=== PATIENT | male | born 1980 | race Caucasian/White ===

== ENCOUNTER 2018-12-31 10:26 | Day surgery (SDC) | payer BC ==
[~2018-12-31] VITALS: Ht 167.6 cm; Wt 108.9 kg
[2018-12-31] VITALS (8 sets, daily range): BP systolic 111–131; BP diastolic 59–85
[~2018-12-31 10:26] MED LIST: AZITHROMYCIN250 MG ORAL; BACTRIM-DS1 EA ORAL; Bupivacaine 0.75% 30ml vial INJ ONE; CRESTOR10 M2 ORAL; FARXIGA5 MG PO; GLUCOPHAGE500 MG PO; JANUMET 50-1,01 EACH ORAL; JANUVIA100 MG ORAL; LISINOPRIL2.5 MG ORAL; Lidocaine 1% MPF 10mg/ml 5ml ONE; METFORMIN HCL1000 M1 ORAL; NORCO 5/3251 TAB ORAL; Proparacaine 0.5% Opth Soln 15ml RIGHT EYE ONE; Tetracaine 0.5% Opth 4ml Soln ONE
[2018-12-31] MEDS ORDERED: Kenalog-40 1ml Vial ONE (10:29)
[2018-12-31] MEDS ORDERED: EPINEPHrine 1mg/1ml Amp ONE (10:29)
[2018-12-31] MEDS ORDERED: Dexamethasone 4mg/ml vial ONE (10:30)
[2018-12-31] MEDS ORDERED: BSS 500ml btl ONE (10:30)
[2018-12-31] MEDS ORDERED: Maxitrol Opth Oint 3.5gm ONE (10:30)
[2018-12-31] MEDS ORDERED: Sodium Hyaluronate 10 mg/ml 0.85ml ONE ×2 (10:31→14:27)
[2018-12-31] MEDS ORDERED: BSS 15ml BTL ONE (10:31)
[2018-12-31] MEDS ORDERED: Acetylcholine Injection (OR) ONE (10:31)
[2018-12-31] MEDS ORDERED: Povidone-Iodine 5% opth solution ONE (10:31)
[2018-12-31] MEDS ORDERED: Goniotaire 2.5% Opth Soln - 15ml ONE (10:36)
[2018-12-31] MEDS ORDERED: Lidocaine 2% MPF 5ml Vial INJ ONE (10:45)
[2018-12-31] MEDS: Phenylephrine 2.5% Op 2ml Soln RIGHT EYE SCH ×3 (10:53→11:13)
[2018-12-31] MEDS: Tropicamide 1% Opth 15ml Soln RIGHT EYE SCH ×3 (10:53→11:13)
[2018-12-31] MEDS: Cyclopentolate 1% Opth Sol 2ml RIGHT EYE SCH ×3 (10:53→11:13)
--- NOTE | 2018-12-31 10:55 | NUR ---
IV LR WAS STARTED BY SILVIA WRIGHT RN. NO S/S OF INFILTRATION.
[2018-12-31] MEDS ORDERED: fentaNYL 100 mcg/2 mL IV ONE (11:17)
[2018-12-31] MEDS ORDERED: Midazolam 2mg/2ml Inj ONE (11:18)
[2018-12-31] MEDS ORDERED: Propofol 200mg/20ml IV ONE (11:18)
[2018-12-31] MEDS ORDERED: Sterile Water Irrig 1000ml IRRIG ONE (11:30)
[2018-12-31] MEDS ORDERED: NS Irrig 1000ml ONE (11:30)
[2018-12-31] MEDS ORDERED: LR 1000ml ONE (11:30)
--- NOTE | 2018-12-31 11:46 | Anethesia Preoperative Eval ---
Anesthesia Pre-op PMH/ROS General Date of Evaluation: Dec 31, 2018 Time of Evaluation: 11:44 Anesthesiologist: Davie ASA Score: ASA 3 Mallampati Score Class I : Soft palate, uvula, fauces, pillars visible Class II: Soft palate, uvula, fauces visible Class III: Soft palate, base of uvula visible Class IV: Only hard plate visible Mallampati Classification: Class III Surgeon: Roxie Diagnosis: R eye diabetic retiopathy Surgical Procedure: R eye PPV Anesthesia History: none Social History: smoking - h/o Family History: no anesthesia problems Allergies: Coded Allergies: PENICILLINS (Verified Allergy, Severe, family hx of david, 11/29/12) Medications: see eMAR Patient NPO?: Yes Past Medical History Cardiovascular: Reports: HTN; Denies: CAD, PR, valve dz, arrhythmia, other Pulmonary: Reports: MARIELY; Denies: asthma, COPD, other Gastrointestinal/Genitourinary: Reports: GERD; Denies: CRI, ESRD, other Neurologic/Psychiatric: Reports: depression/anxiety; Denies: dementia, CVA, TIA, other Endocrine: Reports: DM - poorly controlled; Denies: hypothyroidism, steroids, other HEENT: Reports: other - diabetic retinopathy; Denies: cataract (L), cataract (R), glaucoma, DOUGLAS (L), DOUGLAS (R) Hematology/Immune: Denies: anemia, DVT, bleeding disorder, other Musculoskeletal/Integumentary: Denies: OA, RA, DJD, DDD, edema, other Other: obesity PMH Narrative: as above PSxH Narrative: Foot Sx. Anesthesia Pre-op Phys. Exam Physician Exam Last Vital Signs Date Time Temp Pulse Resp B/P (MAP) Pulse Ox O2 Delivery O2 Flow Rate FiO2 12/31/18 11:05 98.1 84 20 111/66 96 Room Air Constitutional: NAD Neurologic: CN 2-12 intact Cardiovascular: RRR, no M/R/G Respiratory: CTA Gastrointestinal: other - obesity Airway Exam Mallampati Score: Class III MO: full Neck: short ROM: full Teeth: intact Dentures: no upper, no lower Anesthesia Pre-op A/P Labs see chart Studies Pre-op Studies: EKG - NSR Risk Assessment & Plan Assessment: ASA 3 Plan: MAC with retrobulbar block Status Change Before Surgery: No Pre-Antibiotics Drug: none Brigido Broderick MD Dec 31, 2018 11:46
--- NOTE | 2018-12-31 12:03 | Operative Note - PDOC ---
Operative Note Operative Note Pre-op Diagnosis: PDR/VH/TRD OD Anesthesia: local Specimen: none Complications: none Condition: stable Estimated Blood Loss: minimal Drains: none Implant(s) used?: Yes - SO OD Volodymyr Jackman M.D., MD Dec 31, 2018 12:03
--- NOTE | 2018-12-31 12:03 | Pre-Procedure Note/Attestation ---
Pre-Procedure Note/Attestation Complete Prior to Procedure Planned Procedure: right Procedure Narrative: PDR/VH/TRD OD Indications for Procedure Pre-Operative Diagnosis: PDR/VH/TRD OD Attestation I attest that I discussed the nature of the procedure; its benefits; risks and complications; and alternatives (and the risks and benefits of such alternatives ), prior to the procedure, with the patient (or the patient's legal termite control service representative). I attest that, if there was a reasonable possibility of needing a blood transfusion, the patient (or the patient's legal termite control service representative) was given the [facility] standardized written summary, pursuant to the Get[place]w Pieter Blood Safety Act ([place] Health and Safety Code # 1645, as amended). I attest that I re-evaluated the patient just prior to the surgery and that there has been no change in the patient's H&P, except as documented below: Volodymyr Jackman M.D., MD Dec 31, 2018 12:03
[2018-12-31] MEDS ORDERED: LR 1000ml 1,000 ML IVLG SCH (12:21)
[2018-12-31] MEDS ORDERED: Meperidine 50mg/ml Inj(FOR RIGORS ONLY) IV PRN (12:30)
--- NOTE | 2018-12-31 13:33 | Immediate Post-Op Evaluation ---
Immediate Post-Op Evalulation Immediate Post-Op Evalulation Procedure: R eye PPV membraine peel laser treatment, oil injection Date of Evaluation: Dec 31, 2018 Time of Evaluation: 13:31 IV Fluids: 300 Blood Products: none Estimated Blood Loss: min Urinary Output: none Blood Pressure Systolic: 118 Blood Pressure Diastolic: 68 Pulse Rate: 82 Respiratory Rate: 20 O2 Sat by Pulse Oximetry: 98 Temperature (Fahrenheit): 97.6 Pain Score (1-10): 1 Nausea: No Vomiting: No Complications none Patient Status: awake, patent, none Hydration Status: adequate Brigido Broderick MD Dec 31, 2018 13:33
--- NOTE | 2018-12-31 14:25 | 48 Hour Post Anesthesia Eval ---
Post Anesthesia Evaluation Procedure: R eye PPV membraine peel laser treatment, oil injection Date of Evaluation: Dec 31, 2018 Time of Evaluation: 14:24 Blood Pressure Systolic: 114 0: 56 Pulse Rate: 78 Respiratory Rate: 20 Temperature (Fahrenheit): 97.6 O2 Sat by Pulse Oximetry: 98 Airway: patent Nausea: No Vomiting: No Pain Intensity: 2 Hydration Status: adequate Cardiopulmonary Status: stable Mental Status/LOC: patient returned to baseline Follow-up Care/Observations: n/a Post-Anesthesia Complications: none Follow-up care needed: ready to discharge Brigido Broderick MD Dec 31, 2018 14:25
== END 2018-12-31 15:00 | disposition home or self-care (01) ==
LOC: SUR 10:26
DX: E11.3531 Type 2 diabetes mellitus with proliferative diabetic retinopathy with traction retinal detachment not involving the macula, right eye (principal); H26.9 Unspecified cataract; Z88.0 Allergy status to penicillin; Z87.891 Personal history of nicotine dependence; I10 Essential (primary) hypertension; K21.9 Gastro-esophageal reflux disease without esophagitis; G47.33 Obstructive sleep apnea (adult) (pediatric); F32.9 Major depressive disorder, single episode, unspecified; F41.9 Anxiety disorder, unspecified; E11.9 Type 2 diabetes mellitus without complications; E66.9 Obesity, unspecified; Z68.38 Body mass index [BMI] 38.0-38.9, adult
CPT/HCPCS: 67042; 82962; J0171; J1100; J2175; J2250; J2704; J3010; J3301; J3370; J3490; 94003; 94150

== ENCOUNTER 2019-01-14 07:06 | Day surgery (SDC) | payer BC ==
[2019-01-14] VITALS (8 sets, daily range): BP systolic 110–127; BP diastolic 67–78
[~2019-01-14] VITALS: Ht 167.6 cm; Wt 104.3 kg
[~2019-01-14 07:06] MED LIST changes: -Bupivacaine 0.75% 30ml vial INJ ONE; -Lidocaine 1% MPF 10mg/ml 5ml ONE; +Proparacaine 0.5% Opth Soln 15ml LEFT EYE SCH; -Proparacaine 0.5% Opth Soln 15ml RIGHT EYE ONE; -Tetracaine 0.5% Opth 4ml Soln ONE
[2019-01-14] MEDS ORDERED: Kenalog-40 1ml Vial ONE (07:07)
[2019-01-14] MEDS ORDERED: Lidocaine 2% MPF 5ml Vial INJ ONE (07:07)
[2019-01-14] MEDS ORDERED: EPINEPHrine 1mg/1ml Amp ONE (07:07)
[2019-01-14] MEDS ORDERED: Maxitrol Opth Oint 3.5gm ONE (07:08)
[2019-01-14] MEDS ORDERED: Pred Forte 1% Opth Susp 1ml ONE (07:08)
[2019-01-14] MEDS ORDERED: Dexamethasone 4mg/ml vial ONE (07:08)
[2019-01-14] MEDS ORDERED: Goniotaire 2.5% Opth Soln - 15ml ONE (07:08)
[2019-01-14] MEDS ORDERED: Tetracaine 0.5% Opth 4ml Soln ONE (07:09)
[2019-01-14] MEDS ORDERED: BSS 15ml BTL ONE (07:09)
[2019-01-14] MEDS ORDERED: BSS 500ml btl ONE (07:09)
[2019-01-14] MEDS ORDERED: Povidone-Iodine 5% opth solution ONE (07:09)
[2019-01-14] MEDS ORDERED: Acetylcholine Injection (OR) ONE (07:09)
[2019-01-14] MEDS ORDERED: Bupivacaine 0.75% 30ml vial INJ ONE (07:10)
[2019-01-14] MEDS ORDERED: Sodium Hyaluronate 10 mg/ml 0.85ml ONE (07:10)
[2019-01-14] MEDS: Tropicamide 1% Opth 15ml Soln LEFT EYE SCH ×3 (07:23→07:34)
[2019-01-14] MEDS: Phenylephrine 2.5% Op 2ml Soln LEFT EYE SCH ×3 (07:23→07:34)
[2019-01-14] MEDS: Cyclopentolate 1% Opth Sol 2ml LEFT EYE SCH ×3 (07:23→07:35)
[2019-01-14 07:39] LABS: BASOPHILS % (AUTO) 0.8 % (0.0-2.0); EOSINOPHILS % (AUTO) 3.8 % (0.0-3.0); HEMATOCRIT 42.4 % (42.0-52.0); HEMOGLOBIN 14.4 G/DL (14.2-18.0); LYMPHOCYTES % (AUTO) 23.7 % (20.0-45.0); MEAN CORPUSCULAR VOLUME 84 FL (80-99); MONOCYTES % (AUTO) 10.9 % (1.0-10.0); NEUTROPHILS % (AUTO) 60.9 % (45.0-75.0); PLATELET COUNT 207 K/UL (150-450); RED BLOOD COUNT 5.05 M/UL (4.70-6.10); RED CELL DISTRIBUTION WIDTH 12.1 % (11.6-14.8); WHITE BLOOD COUNT 8.1 K/UL (4.8-10.8)
--- NOTE | 2019-01-14 07:39 | Anethesia Preoperative Eval ---
Anesthesia Pre-op PMH/ROS General Date of Evaluation: January 14, 2019 Time of Evaluation: 07:35 Anesthesiologist: Davie ASA Score: ASA 3 Mallampati Score Class I : Soft palate, uvula, fauces, pillars visible Class II: Soft palate, uvula, fauces visible Class III: Soft palate, base of uvula visible Class IV: Only hard plate visible Mallampati Classification: Class III Surgeon: Augustina Diagnosis: Diabetic retinopathy Surgical Procedure: Vitrectomy Anesthesia History: none Family History: no anesthesia problems Allergies: Coded Allergies: PENICILLINS (Verified Allergy, Unknown, 01/13/19) Medications: see eMAR Patient NPO?: Yes Past Medical History Cardiovascular: Reports: HTN; Denies: CAD, CO, valve dz, arrhythmia, other Pulmonary: Reports: MARIELY; Denies: asthma, COPD, other Gastrointestinal/Genitourinary: Reports: GERD; Denies: CRI, ESRD, other Neurologic/Psychiatric: Reports: depression/anxiety; Denies: dementia, CVA, TIA, other Endocrine: Reports: DM; Denies: hypothyroidism, steroids, other HEENT: Reports: other - retinopathy Hematology/Immune: Denies: anemia, DVT, bleeding disorder, other Musculoskeletal/Integumentary: Denies: OA, RA, DJD, DDD, edema, other Other: obesity PMH Narrative: as above PSxH Narrative: see H&P Anesthesia Pre-op Phys. Exam Physician Exam Last Vital Signs Date Time Temp Pulse Resp B/P (MAP) Pulse Ox O2 Delivery O2 Flow Rate FiO2 01/14/19 07:28 98.1 91 18 127/67 98 Room Air Constitutional: NAD Neurologic: CN 2-12 intact Cardiovascular: RRR, no M/R/G Respiratory: CTA Gastrointestinal: S/NT/ND Airway Exam Mallampati Score: Class III MO: full Neck: flexible ROM: full Teeth: intact Dentures: no upper, no lower Anesthesia Pre-op A/P Labs Hematology Test 01/14/19 07:20 White Blood Count Pending Red Blood Count Pending Hemoglobin Pending Hematocrit Pending Mean Corpuscular Volume Pending Mean Corpuscular Hemoglobin Pending Mean Corpuscular Hemoglobin Concent Pending Red Cell Distribution Width Pending Platelet Count Pending Mean Platelet Volume Pending Neutrophils (%) (Auto) Pending Lymphocytes (%) (Auto) Pending Monocytes (%) (Auto) Pending Eosinophils (%) (Auto) Pending Basophils (%) (Auto) Pending Coagulation Test 01/14/19 07:20 Prothrombin Time Pending Prothromb Time International Ratio Pending Activated Partial Thromboplast Time Pending Chemistry Test 01/14/19 07:20 Sodium Level Pending Potassium Level Pending Chloride Level Pending Carbon Dioxide Level Pending Blood Urea Nitrogen Pending Creatinine Pending Estimat Glomerular Filtration Rate Pending Glucose Level Pending Calcium Level Pending Risk Assessment & Plan Assessment: ASA 3 Plan: MAC with retrobulbar block Status Change Before Surgery: No Pre-Antibiotics Drug: none Brigido Broderick MD January 14, 2019 07:39
[2019-01-14] MEDS ORDERED: MULTIVITAMINS1 EAC2 ORAL (07:40)
[2019-01-14] MEDS ORDERED: fentaNYL 100 mcg/2 mL IV ONE (07:41)
[2019-01-14] MEDS ORDERED: Propofol 200mg/20ml IV ONE (07:41)
[2019-01-14] MEDS ORDERED: Midazolam 2mg/2ml Inj ONE (07:41)
--- NOTE | 2019-01-14 07:44 | Pre-Procedure Note/Attestation ---
Pre-Procedure Note/Attestation Complete Prior to Procedure Procedure Narrative: Dense VH OS plan for PPV Indications for Procedure Pre-Operative Diagnosis: PDR/VH OS Attestation I attest that I discussed the nature of the procedure; its benefits; risks and complications; and alternatives (and the risks and benefits of such alternatives ), prior to the procedure, with the patient (or the patient's legal inside outside sales representative). I attest that, if there was a reasonable possibility of needing a blood transfusion, the patient (or the patient's legal inside outside sales representative) was given the [facility] standardized written summary, pursuant to the Get[place]w Pieter Blood Safety Act ([place] Health and Safety Code # 1645, as amended). I attest that I re-evaluated the patient just prior to the surgery and that there has been no change in the patient's H&P, except as documented below: Volodymyr Jackman M.D., MD January 14, 2019 07:44
--- NOTE | 2019-01-14 07:45 | Operative Note - PDOC ---
Operative Note Operative Note Chief Complaint: Vision loss OS Pre-op Diagnosis: PDR/VH OS Procedure: PPV/MP/EL/AFE/SO OS Post-op Diagnosis: PDR/NCVH/TRD/Cataract OS Surgeon: Augustina Anesthesia: local Specimen: none Complications: none Condition: stable Estimated Blood Loss: minimal Implant(s) used?: Yes - SO Indications for Procedure Location: [facility] [place] Pre-operative Diagnosis: 1. 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 Cataract, LEFT EYE Post-operative Diagnosis: Same Procedure: Pars plana vitrectomy, tractional retinal detachment repair, membrane peel, endolaser, air-fluid exchange, infusion of silicone oil (1K centistokes) LEFT EYE Surgeon: Volodymyr Jackman M.D. Anesthesia: Retrobulbar Complications: None Indications for the procedure: The patient has vision loss due to proliferative diabetic retinopathy/ tractional retinal detachment and presents today for surgery. After review of the risks, benefits, alternative and the patient signed informed consent into the medical chart. Description of Procedure Procedure performed: The patient was met in the pre-op area where informed consent was reviewed. The operative eye was verified, marked and dilated. The patient was transferred to the operative suite, where cardiopulmonary monitoring was established and peribulbar anesthetic was administered without complications. The eye was prepped and draped in sterile ophthalmic fashion. Under microscope visualization the 23 gauge infusion line was placed inferotemporally. After visualization of the tip in the vitreous cavity, the infusion line was turned on. The superotemporal and superonasal cannulas were placed. Under BIOM visualization, peripheral and core vitrectomy was performed. As the DENSE vitreous hemorrhage was cleared, view of the posterior pole was improved. There was a moderate cataract present. Inspection of the posterior pole revealed extensive tractional membranes and gliosis with tractional retinal detachment. There was also extensive exudates in the macula. Further peripheral vitrectomy was performed to release the cindy-posterior traction. Using a combination of instruments, the posterior membranes were dissected to relieve tractional forces. As the membranes were removed, the retinal traction was reduced. No stretch holes or iatrogenic breaks were noted. Endolaser was applied to perform complete PRP (No laser scarring was present). Air-fluid exchange was performed. Silicone oil was infused. The cannulas were removed and sclerotomies were sutured. The eye maintained normal intraocular pressure. Subconjunctival vancomycin and dexamethasone were administered. The lid speculum was removed. The eye was cleaned of prep and drape. Atropine drop and Maxitrol ointment was applied. A pressure patch was placed. The patient was turned over to the anesthesia team and transferred in stable condition to the PACU. Volodymyr Jackman M.D., MD January 14, 2019 07:45
[2019-01-14 07:48] LABS: INR 1.1 (0.9-1.1)
[2019-01-14 07:52] LABS: ANION GAP 8 mmol/L (5-15); BLOOD UREA NITROGEN 14 mg/dL (7-18); CALCIUM 9.5 MG/DL (8.5-10.1); CARBON DIOXIDE 30 MMOL/L (21-32); CHLORIDE 104 MMOL/L (98-107); CREATININE 1.1 MG/DL (0.55-1.30); POTASSIUM 3.8 MMOL/L (3.5-5.1); SODIUM 142 MMOL/L (136-145)
[2019-01-14] MEDS ORDERED: Sterile Water Irrig 1000ml IRRIG ONE (08:00)
[2019-01-14] MEDS ORDERED: NS Irrig 1000ml ONE (08:00)
[2019-01-14] MEDS ORDERED: LR 1000ml ONE (08:00)
[2019-01-14] MEDS ORDERED: LR 1000ml 1,000 ML IVLG SCH (08:18)
[2019-01-14] MEDS ORDERED: Meperidine 50mg/ml Inj(FOR RIGORS ONLY) IV PRN (08:30)
--- NOTE | 2019-01-14 09:15 | Immediate Post-Op Evaluation ---
Immediate Post-Op Evalulation Immediate Post-Op Evalulation Procedure: L eye PPV membrane peel laser treatment Date of Evaluation: January 14, 2019 Time of Evaluation: 09:13 IV Fluids: 200 Blood Products: none Estimated Blood Loss: min Urinary Output: none Blood Pressure Systolic: 119 Blood Pressure Diastolic: 72 Pulse Rate: 84 Respiratory Rate: 20 O2 Sat by Pulse Oximetry: 98 Temperature (Fahrenheit): 97.8 Pain Score (1-10): 2 Nausea: No Vomiting: No Complications none Patient Status: awake, patent, none Hydration Status: adequate Brigido Broderick MD January 14, 2019 09:14
--- NOTE | 2019-01-14 10:11 | 48 Hour Post Anesthesia Eval ---
Post Anesthesia Evaluation Procedure: L eye PPV membrane peel laser treatment Date of Evaluation: January 14, 2019 Time of Evaluation: 10:10 Blood Pressure Systolic: 118 0: 72 Pulse Rate: 82 Respiratory Rate: 22 Temperature (Fahrenheit): 97.5 O2 Sat by Pulse Oximetry: 98 Airway: patent Nausea: No Vomiting: No Pain Intensity: 1 Hydration Status: adequate Cardiopulmonary Status: stable Mental Status/LOC: patient returned to baseline Follow-up Care/Observations: n/a Post-Anesthesia Complications: none Follow-up care needed: ready to discharge Brigido Broderick MD January 14, 2019 10:11
--- NOTE | 2019-01-15 16:30 | Pre-op HX & Phy Repo 2 SIG ---
DATE OF ADMISSION: 01/14/2019 PRESURGICAL INTERNAL MEDICINE HISTORY AND PHYSICAL REASON FOR EVALUATION: I was asked by Dr. Mayi Faustin to see this 38-year-old male, who going for elective surgery on the left eye. The patient has retinal detachment, left eye. Please see Ophthalmology History and Physical by Dr. Faustin. The patient was evaluated for an outpatient procedure. PAST MEDICAL HISTORY AND REVIEW OF SYSTEMS: Remarkable for hypertension, diabetes mellitus. No history of stroke or seizures. No heart attack. Denies history of renal failure. The patient is overweight, weight 230 pounds and 5 feet 6 inches. No history of renal failure. No thyroid problem. No anemia. PAST SURGICAL HISTORY: Right foot diabetic ulcer and left eye surgery November 2018. FAMILY HISTORY: Both parents which history of heart attack and diabetes. ALLERGIES: To penicillin. PRESENT MEDICATIONS: Include Janumet, lisinopril 2.5 mg, baby aspirin, Crestor, multivitamin, Farxiga. HABITS: The patient smokes for approximately three cigarettes a day. Alcohol occasionally. No street drugs. PHYSICAL EXAMINATION: GENERAL: Alert, overweight male, without acute distress. VITAL SIGNS: Blood pressure 137/67, temperature 98, pulse 91 beats per minute. SKIN: Dry, warm, clear. No rashes. No ulcers. . HEENT: Head, normocephalic and atraumatic. Nose clear, no discharge. Eyes, full description per Dr. Mayi Jackman. Mouth, clear and moist. No dentures. NECK: No jugular venous distention. Carotids artery +2. Trachea midline. CHEST: No deformity or asymmetry. LUNGS: Clear to auscultation and percussion. No rales or rhonchi. ABDOMEN: Soft, obese. Liver and spleen not enlarged. No rebound. EXTREMITIES: No peripheral edema or varicose veins. No open wound. GENITOURINARY: Normal for gender. No dysuria. No CVA tenderness. NERVOUS SYSTEM: No tremor. No nystagmus. LABORATORY AND DIAGNOSTIC DATA: ECG, normal sinus rhythm, short AR interval, possible infarct, . Fasting sugar 134. Rest of laboratory normal limits, CBC and chemistry. The patient's last p.o. intake 9 p.m. yesterday. IMPRESSION: 1. Retinal detachment, left eye. 2. Hypertension, controlled. 3. Diabetes mellitus, type 1, [id number]. 4. Coronary heart disease on ECG. PLAN: Vitrectomy, endolaser, gas and fluid , left eye, per Dr. Mayi Jackman. CONCLUSION: The patient is a 38-year-old male, overweight, has history for 20 years diabetes mellitus which is controlled and hypertension also control. The patient did not eat or drink from 9 p.m. yesterday. The patient's condition optimized for surgery. Thank you very much, Dr. Jackman, for privilege to participate in presurgical care of this interesting patient. Makayla Byers M.D. DR: Jose F JOB#: [id number] CC:
== END 2019-01-14 11:30 | disposition home or self-care (01) ==
LOC: SUR 07:06
DX: H43.12 Vitreous hemorrhage, left eye (principal); E10.3532 Type 1 diabetes mellitus with proliferative diabetic retinopathy with traction retinal detachment not involving the macula, left eye; H26.9 Unspecified cataract; I10 Essential (primary) hypertension; G47.33 Obstructive sleep apnea (adult) (pediatric); K21.9 Gastro-esophageal reflux disease without esophagitis; F32.9 Major depressive disorder, single episode, unspecified; F41.9 Anxiety disorder, unspecified; Z88.0 Allergy status to penicillin; I25.10 Atherosclerotic heart disease of native coronary artery without angina pectoris; I11.9 Hypertensive heart disease without heart failure; E66.9 Obesity, unspecified; F17.210 Nicotine dependence, cigarettes, uncomplicated; Z79.899 Other long term (current) drug therapy; Z79.82 Long term (current) use of aspirin; Z83.3 Family history of diabetes mellitus; Z82.49 Family history of ischemic heart disease and other diseases of the circulatory system; Z68.37 Body mass index [BMI] 37.0-37.9, adult
CPT/HCPCS: 36415; 67040; 67042; 80048; 82962; 85025; 85610; 85730; J0171; J1100; J2175; J2250; J2405; J2704; J3010; J3301; J3370; J3490; 94003; 94150